=== PATIENT | male | born 1955 | race Caucasian/White ===

== ENCOUNTER 2021-02-14 06:59 | Outpatient (REF) | payer OTHER, SELFPAY ==
[2021-02-14 07:39] LABS: MANUAL DIFF FLAG NO
[2021-02-14 07:48] LABS: Basophils Absolute Auto 0.1 X10*3/uL (0.0-0.2); Eosinophils Absolute Auto 0.2 X10*3/uL (0.0-0.4); Eosinophils Percent Auto 2.3 % (0-4); Hematocrit 43.8 % (42-52); Hemoglobin 14.3 g/dl (14.0-18.0); Imm Gran Abs Auto 0.03 X10*3/uL (0.00-0.03); Imm Gran Pct Auto 0.4 % (0.0-0.4); Lymphocytes Absolute Auto 2.1 X10*3/uL (1.2-4.9); Lymphocytes Percent Auto 24.8 % (20-40); Mean Corpuscular HGB Conc 32.6 g/dl (31.0-36.0); Mean Corpuscular Hemoglobin 30.6 pg (27.0-33.0); Mean Corpuscular Volume 93.8 fL (80-98); Mean Platelet Volume 11.7 fL (9.4-12.4); Monocytes Absolute Auto 0.7 X10*3/uL (0.1-1.2); Monocytes Percent Auto 8.3 % (2-11); Neutrophils Absolute Auto 5.3 X10*3/uL (2.0-8.3); Neutrophils Percent Auto 63.2 % (45-73); Platelet Count 212 X10*3/uL (160-400); Red Blood Count 4.67 X10*6/uL (4.60-5.80); Red Cell Distribution Width 13.7 % (11.0-16.0); White Blood Count 8.3 X10*3/uL (4.8-10.8)
[2021-02-14 08:14] LABS: Alanine Aminotransferase 20 U/L (0-40); Albumin Level 4.4 g/dL (3.5-5.0); Alkaline Phosphatase 38 U/L (39-117); Anion Gap 11 (12-20); Aspartate Amino Transferase 16 U/L (5-37); Bilirubin Total 0.4 mg/dL (0.0-1.0); Blood Urea Nitrogen 15 mg/dL (9-16); Calcium 9.7 mg/dL (8.4-10.2); Carbon Dioxide 29 mmol/L (22-29); Chloride 103 mmol/L (96-108); Cholesterol 153 mg/dL; Estimated Glomerular Filt Rate > 60; Glucose Random 106 mg/dL (60-115); HDL Cholesterol 53 mg/dL; LDL Cholesterol Calculated 90 mg/dl; Potassium 4.8 mmol/L (3.3-5.1); Sodium 138 mmol/L (135-145); Total Protein 7.1 g/dL (6.5-8.0); Triglycerides 53 mg/dL
[2021-02-14 08:36] LABS: Prostate Specific Antigen 0.37 ng/mL (<0.05-4.0)
== END 2021-02-14 07:00 | disposition home or self-care (01) ==
LOC: HO.LAB 06:59
PROVIDERS: PCP Internal Medicine; Visit Provider Internal Medicine
DX: Z12.5 Encounter for screening for malignant neoplasm of prostate (principal); E78.00 Pure hypercholesterolemia, unspecified; Z87.19 Personal history of other diseases of the digestive system
CPT/HCPCS: 36415; 80053; 80061; 84153; 85025

== ENCOUNTER 2023-05-17 08:44 | Outpatient (AMB) | payer MEDICARE, SELFPAY ==
[2023-05-17 09:12] VITALS: BP 128/72; PULSE 76; TEMP 36.6; O2SAT 99
--- NOTE | 2023-05-17 09:12 | MHC.OFFWIV ---
Intake Vital Signs 05/17/23 09:12 Weight 165 lb BP 128/72 Blood Pressure Location Lt brachial Position Sitting Pulse 76 Pulse Source Pulse Oximeter Temp 97.8 F Temp Source Oral Pulse Oximetry (%) 99 Oxygen Delivery Method Room Air Intake Visit Reasons: EP, Right side of back pain Intake Note: pt is here for c/o dizziness/room spinning while doing yard work, also right side back pain for a few months Patient Tobacco Use Status: Never used Tobacco Allergies codeine [CODEINE] Allergy (Intermediate, Verified 05/17/23 09:14) RASH Do you need a note to return to daycare/school/sports/work: No HPI EP, Right side of back pain HPI Details Patient presents with to primary complaints today. He reports intermittent left-sided back pain, which mostly occurs when he has been holding his urine for a long time. He denies any burning with urination. He denies any urgency or frequency with urination. He denies any fever or chills. He reports this pain is a tightness/sharp spasm. He also reports a couple episodes of vertigo over the last couple months, the last of which was last Tuesday. This occurred after he was bending down doing some work in his garden. He stood up quickly, and yet has sensation of vertigo and dizziness until he was able to lie down in his home. He denies any chest pain, shortness of breath, palpitations. He reports he is otherwise very healthy. He was not able to get in with his PCP. He reports the last time he had symptoms like this, he had COVID, and he would like to have a test done if possible. [facility] Social History Patient Tobacco Use Status: Never used Tobacco Review of Systems Const All systems reviewed & are unremarkable except as noted in HPI and below Physical Exam Vital Signs: Last Vital Signs Temp 97.8 F 05/17/23 09:12 Pulse 76 05/17/23 09:12 BP 128/72 05/17/23 09:12 Pulse Ox 99 05/17/23 09:12 Oxygen Delivery Method Room Air 05/17/23 09:12 Const General: cooperative, healthy appearing, comfortable and no acute distress Nutritional Appearance: average body habitus HEENT Head: Yes normal to inspection Neck Neck: Yes no lymphadenopathy Resp Effort & Inspection: normal respiratory effort and able to speak in complete sentences Auscultation: clear to auscultation bilaterally Cardio Jugular venous distension: no JVD Palpation: normal PMI Rate: regular rate Rhythm: regular rhythm General: Yes no CVA tenderness Back/Spine/Pelvis Back: no CVA tenderness Skin General skin exam: no rashes or lesions noted Neuro General: tone normal and no focal motor deficits Extrem General: Yes capillary refill normal and Yes no clubbing, cyanosis or edema Psych Appearance: grossly normal Mental Status: mental status grossly normal Speech and movement: Normal speech and movement present Results AMB Urinalysis, Automated UA Leukoctes 0 Snehal/uL Last Edit by Rodrick Delong CMA on 05/17/23 09:25 UA Nitrite Negative Last Edit by Rodrick Delong CMA on 05/17/23 09:25 UA Urobilinogen 0.2 mg/dL Last Edit by Rodrick Delong CMA on 05/17/23 09:25 UA Protein 0 mg/dL Last Edit by Rodrick Delong CMA on 05/17/23 09:25 UA pH 6.0 Last Edit by Rodrick Delong CMA on 05/17/23 09:25 UA Blood 0 Bruce/uL Last Edit by Rodrick Delong CMA on 05/17/23 09:25 UA Specific Laurel 1.020 Last Edit by Rodrick Delong CMA on 05/17/23 09:25 UA Ketone Negative Last Edit by Rodrick Delong CMA on 05/17/23 09:25 UA Bilirubin 0 mg/dL Last Edit by Rodrick Delong CMA on 05/17/23 09:25 UA Glucose 0 mg/dL Last Edit by Rodrick Delong CMA on 05/17/23 09:25 Results Reviewed Results Reviewed: Laboratory Last Values Urine pH (Auto) 6.0 05/17/23 09:24 Specific Laurel (Auto) 1.020 05/17/23 09:24 Urine Protein (Auto) 0 mg/dL 05/17/23 09:24 Glucose (UA)(Auto) 0 mg/dL 05/17/23 09:24 Urine Ketones (Auto) Negative 05/17/23 09:24 Urine Blood (Auto) 0 Bruce/uL 05/17/23 09:24 Urine Nitrite (Auto) Negative 05/17/23 09:24 Urine Bilirubin (Auto) 0 mg/dL 05/17/23 09:24 Urine Urobilinogen (Auto) 0.2 mg/dL 05/17/23 09:24 Leukocyte Esterase (Auto) 0 Snehal/uL 05/17/23 09:24 Assessment & Plan Assessment & Plan (1) Dizziness: Code(s): R42 - Dizziness and giddiness Plan: Patient has not been able to get and with his PCP Dr. Cole. He has been having episodes of dizziness, particularly with position changes. I encouraged him to increase hydration, and to change positions slowly, particularly when bending over. I am going to order some labs today, CBC, BMP and will notify him of results once these are available. I encouraged him to call PCP office to make follow-up appt. If these episodes started occurring more frequently, he should go to the ED for evaluation. (2) Right-sided back pain: Code(s): M54.9 - Dorsalgia, unspecified Qualifiers: Back pain location: thoracic back pain Chronicity: unspecified Qualified Code(s): M54.6 - Pain in thoracic spine Plan: Patient has some spasm-like right mid back pain intermittently after holding urine for a long time. No urinary symptoms. Urine dip in the office was normal. Will check kidney function with labs. If he develops any urinary symptoms, he should follow-up with PCP or return to the clinic for further evaluation. Orders: Orders Basic Metabolic Panel Today R42 - Dizziness and giddiness RADHA Salazar Complete Blood Count Auto Diff Today R42 - Dizziness and giddiness RADHA Salazar BinaxNOW Covid-19 Ag Today R42 - Dizziness and giddiness RADHA Salazar AMB Urinalysis Automated Today Z13.9 - Encounter for screening, unspecified ANGEL Best Coding Level of Care Code Est Pt Level 3 (58787) Diagnoses Dizziness R42 Right-sided back pain M54.6 Back pain location: thoracic back pain Chronicity: unspecified
== END 2023-05-17 10:22 | disposition home or self-care (01) ==
PROVIDERS: PCP Internal Medicine; Visit Provider Nurse Practitioner Family
DX: R42 Dizziness and giddiness (principal); M54.6 Pain in thoracic spine
CPT/HCPCS: 81003; 99213

== ENCOUNTER 2023-05-17 10:10 | Outpatient (REF) | payer MEDICARE, SELFPAY ==
[2023-05-17 10:37] LABS: Binax Now Covid-19 Ag Negative (Negative); Binax Performed by: HO.BONILM
[2023-05-17 10:38] LABS: Binax Internal Control QC Valid
[2023-05-17 13:48] LABS: MANUAL DIFF FLAG NO
[2023-05-17 13:53] LABS: Basophils Absolute Auto 0.1 X10*3/uL (0.0-0.2); Basophils Percent Auto 0.8 % (0-2); Eosinophils Absolute Auto 0.1 X10*3/uL (0.0-0.4); Eosinophils Percent Auto 0.6 % (0-4); Hematocrit 46.9 % (42.0-52.0); Hemoglobin 15.6 g/dl (14.0-18.0); Imm Gran Abs Auto 0.04 X10*3/uL (0.00-0.03); Imm Gran Pct Auto 0.4 % (0.0-0.4); Lymphocytes Absolute Auto 1.9 X10*3/uL (1.2-4.9); Lymphocytes Percent Auto 18.6 % (20-40); Mean Corpuscular HGB Conc 33.3 g/dl (31.0-36.0); Mean Corpuscular Hemoglobin 30.6 pg (27.0-33.0); Mean Platelet Volume 11.2 fL (9.4-12.4); Monocytes Absolute Auto 0.8 X10*3/uL (0.1-1.2); Monocytes Percent Auto 8.1 % (2-11); Neutrophils Absolute Auto 7.2 x10*3/uL (2.0-8.3); Neutrophils Percent Auto 71.5 % (45-73); Platelet Count 286 X10*3/uL (160-400); Red Cell Distribution Width 13.6 % (11.0-16.0); White Blood Count 10.1 X10*3/uL (4.8-10.8)
[2023-05-17 14:04] LABS: Anion Gap 12 (12-20); Blood Urea Nitrogen 15 mg/dL (9-16); Calcium 10.1 mg/dL (8.4-10.2); Carbon Dioxide 28 mmol/L (22-29); Chloride 104 mmol/L (96-108); Estimated Glomerular Filt Rate > 60; Glucose Random 89 mg/dL (60-115); Potassium 4.5 mmol/L (3.3-5.1); Sodium 139 mmol/L (135-145)
== END 2023-05-17 10:11 | disposition home or self-care (01) ==
LOC: HO.HMGCLDS 10:10
PROVIDERS: PCP Internal Medicine; Visit Provider Nurse Practitioner Family
DX: R42 Dizziness and giddiness (principal); Z20.822 Contact with and (suspected) exposure to COVID-19
CPT/HCPCS: 80048; 85025; 87811; C9803

== ENCOUNTER 2023-06-17 08:03 | Outpatient (AMB) | payer MEDICARE, SELFPAY ==
--- NOTE | 2023-06-17 08:10 | AM.OFFWIN_ITS ---
Intake Vital Signs 06/17/23 08:12 Height 5 ft 9 in Weight 168 lb BMI 24.8 BP 142/82 H Blood Pressure Location Lt brachial Position Sitting Pulse 82 Pulse Source Pulse Oximeter Temp 97.9 F Temp Source Temporal Artery Scan Pulse Oximetry (%) 98 Intake Visit Reasons: EP WC LT knee Injury Intake Note: pt is here for WC left knee injury Patient Tobacco Use Status: Never used Tobacco Allergies codeine [CODEINE] Allergy (Intermediate, Verified 05/17/23 09:14) RASH Do you need a note to return to daycare/school/sports/work: Yes HPI HPI Comments History of Present Illness Details This is a 67-year-old male with no stated past medical history presenting for evaluation of a left knee injury that occurred at work on June 15, 2023. 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 The patient was standing while holding an industrial size rule of plastics shrink wrap on his right shoulder when he twisted his left knee. Patient states he has had pain in his left medial knee since that time. Patient has been taking 400 mg of ibuprofen 3 times daily however this has caused him abdominal pain, which has occurred before with ibuprofen. Patient reported the incident to his hospice clinical supervisor however has not yet submitted a workman's compensation claim. Patient states he is able to ambulate independently with discomfort. [facility] Social History Patient Tobacco Use Status: Never used Tobacco Review of Systems Const All systems reviewed & are unremarkable except as noted in HPI and below Musc Denies back pain, Denies myalgias, Reports joint swelling (left knee), Reports limited range of motion (Left knee), Denies muscle weakness, Reports stiffness (left knee) and Denies tingling Skin/Breast Reports system reviewed and no additional complaints, except as documented Neuro Denies tingling Physical Exam Vital Signs: Last Vital Signs Temp 97.9 F 06/17/23 08:12 Pulse 82 06/17/23 08:12 BP 142/82 H 06/17/23 08:12 Pulse Ox 98 06/17/23 08:12 BMI result Body Mass Index 24.8 Const General: cooperative, healthy appearing and no acute distress Nutritional Appearance: average body habitus Orientation/consciousness: patient oriented x3 Limitations: no limitations Neuro General: patient oriented x3 Extrem General: Yes normal to inspection, Yes no calf tenderness (left) and No normal gait (favoring left lower extremity) Left lower extremity: full ROM (left knee) and knee (left knee with tenderness medially,no joint laxity,no patella edema/warmth) Details: no swelling, no deformity and no unusual warmth; no edema Psych Appearance: grossly normal Affect: normal affect Attitude: cooperative Thought process: Normal thought process present Thought content: Normal thought content present Insight: Good insight present (Psych) Judgement: Good judgement present (Psych) Assessment & Plan Assessment & Plan (1) Strain of left knee: Code(s): S86.912A - Strain of unspecified muscle(s) and tendon(s) at lower leg level, left leg, initial encounter Plan: Patient seen and evaluated. Patient will be discharged home with a short course of prednisone 40 mg for his discomfort to avoid additional NSAID administ ration. Patient is encouraged to speak with his hospice clinical supervisor and open a formal workman's compensation claim as he will benefit from a physical therapy evaluation. No splinting or compression is provided Or warranted today in the office. Medications: New prednisone 40 mg (2 x 20 mg) PO DAILY 10 tabs 0RF Coding Level of Care Code New Pt Level 3 (72505) Diagnoses Strain of left knee S86.912A Time Spent (min) 20
[2023-06-17 08:12] VITALS: BP 142/82; PULSE 82; TEMP 36.6; O2SAT 98; BMI 24.8
== END 2023-06-17 09:25 | disposition home or self-care (01) ==
PROVIDERS: PCP Internal Medicine; Visit Provider Physician Assistant
DX: S86.912A Strain of unspecified muscle(s) and tendon(s) at lower leg level, left leg, initial encounter (principal)
CPT/HCPCS: 99203

== ENCOUNTER 2024-05-26 07:00 | Outpatient (REF) | payer MEDICARE, SELFPAY ==
[2024-05-26 07:32] LABS: MANUAL DIFF FLAG NO
[2024-05-26 08:23] LABS: Basophils Absolute Auto 0.1 X10*3/uL (0.0-0.2); Basophils Percent Auto 0.8 % (0-2); Eosinophils Absolute Auto 0.2 X10*3/uL (0.0-0.4); Hematocrit 43.8 % (42.0-52.0); Hemoglobin 14.6 g/dl (14.0-18.0); Imm Gran Abs Auto 0.03 X10*3/uL (0.00-0.03); Imm Gran Pct Auto 0.3 % (0.0-0.4); Lymphocytes Absolute Auto 1.7 X10*3/uL (1.2-4.9); Lymphocytes Percent Auto 19.5 % (20-40); Mean Corpuscular HGB Conc 33.3 g/dl (31.0-36.0); Mean Corpuscular Hemoglobin 30.7 pg (27.0-33.0); Mean Corpuscular Volume 92.2 fL (80.0-98.0); Mean Platelet Volume 11.2 fL (9.4-12.4); Monocytes Absolute Auto 0.7 X10*3/uL (0.1-1.2); Monocytes Percent Auto 7.8 % (2-11); Neutrophils Absolute Auto 6.2 x10*3/uL (2.0-8.3); Neutrophils Percent Auto 69.6 % (45-73); Platelet Count 234 X10*3/uL (160-400); Red Blood Count 4.75 X10*6/uL (4.60-5.80); White Blood Count 8.9 X10*3/uL (4.8-10.8)
[2024-05-26 08:56] LABS: Alanine Aminotransferase 17 U/L (0-40); Albumin Level 4.3 g/dL (3.5-5.0); Alkaline Phosphatase 38 U/L (39-117); Anion Gap 12 (12-20); Aspartate Amino Transferase 14 U/L (5-37); Bilirubin Total 0.7 mg/dL (0.0-1.0); Blood Urea Nitrogen 15 mg/dL (9-16); Carbon Dioxide 29 mmol/L (22-29); Chloride 104 mmol/L (96-108); Cholesterol 270 mg/dL (<200); Estimated Glomerular Filt Rate > 60; Glucose Random 97 mg/dL (60-115); HDL Cholesterol 59 mg/dL (>40); LDL Cholesterol Calculated 198 mg/dL (<100); Potassium 5.1 mmol/L (3.3-5.1); Sodium 140 mmol/L (135-145); Total Protein 7.1 g/dL (6.5-8.0); Triglycerides 69 mg/dL (<150)
[2024-05-26 09:12] LABS: TSH reflex Free T4 1.16 uIU/mL (0.32-4.0)
[2024-05-30 13:18] LABS: HCV Log PCR <1.18 NOT DETECTED Log IU/mL (NOT DETECTED); HepC Viral Load <15 NOT DETECTED IU/mL (NOT DETECTED)
== END 2024-05-26 07:01 | disposition home or self-care (01) ==
LOC: HO.LAB 07:00
PROVIDERS: PCP Internal Medicine; Visit Provider Internal Medicine
DX: E78.00 Pure hypercholesterolemia, unspecified (principal)
CPT/HCPCS: 36415; 80053; 80061; 84443; 85025; 87522

== ENCOUNTER 2024-06-14 08:37 | Outpatient (REF) | payer MEDICARE, SELFPAY ==
--- NOTE | ~2024-06-14 | US_ITS ---
EXAMINATION: US ABDOMEN COMPLETE CLINICAL INFORMATION: Transaminitis. COMPARISON: None available. TECHNIQUE: Real-time imaging of the abdominal viscera. FINDINGS: PANCREAS: Normal. ABDOMINAL AORTA: The proximal, mid, and distal segments are normal in caliber. INFERIOR VENA CAVA: Visualized portions are normal. LIVER: The liver is normal in size. The liver contour is normal. Parenchymal echogenicity is normal. No focal hepatic lesion. There is no intrahepatic biliary duct dilatation seen. GALLBLADDER: The gallbladder is physiologically distended without evidence of stones, sludge, polyps, wall thickening or pericholecystic fluid. There is an echogenic area in the wall of the gallbladder posteriorly measuring 3 x 2 x 2 mm which either represents a nonmobile stone versus a calcified polyp versus an area of mural calcification. COMMON BILE DUCT: Normal in caliber measuring 0.6 cm in diameter. RIGHT KIDNEY: Multiple echogenic foci seen the largest measuring 3 mm in the mid kidney consistent with nonobstructing calculi. No hydronephrosis. The kidney measures 11.6 cm in maximum dimension. Multiple benign Bosniak class I renal cysts are noted, the largest in the upper pole measuring 1.6 cm, which require no additional imaging or follow-up. No solid renal masses are seen. LEFT KIDNEY: Multiple echogenic foci seen consistent with nonobstructing calculi the largest in the upper pole measuring 4 mm. No hydronephrosis. The kidney measures 11.0 cm in maximum dimension. Multiple benign Bosniak class I renal cysts are noted, the largest in the upper pole measuring 4.7 cm, which require no additional imaging or followup. No solid renal masses are seen. SPLEEN: Normal. The spleen measures 9.5 cm in maximum dimension. FREE FLUID: None. US/US abdomen complete IMPRESSION: 1. Bilateral nonobstructing renal calculi. 2. A 3 mm echogenic area in the wall of the gallbladder which either represents a nonmobile stone versus a calcified polyp versus an area of mural calcification. 3. Bilateral benign Bosniak class I renal cysts need no additional imaging or followup. Electronically signed by: Jose Tesfaye MD 08/02/2024 01:11 PM [facility] [place]
[2024-06-14 10:51] LABS: Prostate Specific Antigen 0.49 ng/mL (<0.05-4.0)
== END 2024-06-14 08:38 | disposition home or self-care (01) ==
LOC: HO.HMGCX 08:37
PROVIDERS: PCP Internal Medicine; Visit Provider Internal Medicine
DX: R74.01 Elevation of levels of liver transaminase levels (principal); R35.1 Nocturia; Z12.5 Encounter for screening for malignant neoplasm of prostate
CPT/HCPCS: 36415; 76700; 84153

== ENCOUNTER 2024-12-10 10:24 | Day surgery (SDC) | payer MEDICARE, SELFPAY ==
[2024-12-06 16:22] VITALS: BMI 23.3
--- NOTE | 2024-12-07 10:58 | HO.ANESPROP2 ---
Documented by User: Rose Mary Magallon NP 12/07/24 10:58 HPI - Anesthesia Eval Consult details Narrative: 69yo M for Colonoscopy [facility] Active Problems Active Problems: All Active Problems Strain of left knee (Acute) Past Medical History Medical History (Updated 12/10/24 @ 11:06 by Liz Boone RN) Trigger finger of right hand Surgical History Surgical History (Updated 12/10/24 @ 11:06 by Liz Boone RN) S/P trigger finger release Hx of left inguinal hernia repair (~2005) Hx of umbilical hernia repair (~2005) Hx of colonoscopy Social History Social History Patient Tobacco Use Status: Never used Tobacco Use of substances other than those prescribed or required for medical reasons: Yes Substance Use Frequency: Occasionally Have you been hit, kicked, punched, or otherwise hurt by someone within the past year? If so, by whom?: No Are you DNR?: No Advance Directives: No Advance Directives Information Provided: Yes Recently lost weight without trying: No Nutrition Risks: No Nutritional Risk Poor oral hygiene: No Meds Allergies Allergy/AdvReac Type Severity Reaction Status Date / Time codeine [CODEINE] Allergy Intermediate RASH Verified 12/10/24 11:06 Home Medications ?Medication ?Instructions ?Recorded ?Confirmed ?Last Taken ?Type Fish Oil 1,000 mcg PO DAILY 12/06/24 12/10/24 Unknown History ibuprofen 600 mg PO Q6-8H PRN Pain (Scale 12/06/24 12/10/24 Unknown History Score 7-10) multivitamin 1 tab PO DAILY 12/06/24 12/10/24 Unknown History Exam Height,Weight and Vital Signs: Height 5 ft 9 in Weight 71.668 kg Assessment and Plan Assessment Anesthesia Assessment: Chart Reviewed Documented by User: Con Pratt MD 12/10/24 12:25 PMFSH Past Medical History Medical History (Updated 12/10/24 @ 11:06 by Liz Boone RN) Trigger finger of right hand Family History Family history of problems with anesthesia: No Surgical History Surgical History (Updated 12/10/24 @ 11:06 by Liz Boone RN) S/P trigger finger release Hx of left inguinal hernia repair (~2005) Hx of umbilical hernia repair (~2005) Hx of colonoscopy History of Problems with Anesthesia: No Social History Social History Patient Tobacco Use Status: Never used Tobacco Use of substances other than those prescribed or required for medical reasons: Yes Substance Use Frequency: Occasionally Have you been hit, kicked, punched, or otherwise hurt by someone within the past year? If so, by whom?: No Are you DNR?: No Advance Directives: No Advance Directives Information Provided: Yes Recently lost weight without trying: No Nutrition Risks: No Nutritional Risk Poor oral hygiene: No Meds Allergies Allergy/AdvReac Type Severity Reaction Status Date / Time codeine [CODEINE] Allergy Intermediate RASH Verified 12/10/24 11:06 Home Medications ?Medication ?Instructions ?Recorded ?Confirmed ?Last Taken ?Type Fish Oil 1,000 mcg PO DAILY 12/06/24 12/10/24 Unknown History ibuprofen 600 mg PO Q6-8H PRN Pain (Scale 12/06/24 12/10/24 Unknown History Score 7-10) multivitamin 1 tab PO DAILY 12/06/24 12/10/24 Unknown History Exam Airway Mallampati Class: II TM Dist: >3cm Neck ROM: Full Assessment and Plan Assessment Anesthesia Assessment: Anesthesia Plan Discussed Final Anesthetic Review Family History of Problems with Anesthesia: No History of Problems with Anesthesia: No NPO: Yes ASA Class: I Final Preanesthetic Review: No Changes in Pt Med Stat, Meds/Allgs Chart Reviewed, Consent Obtained/Reviewed and Anes Risks/Benef Reviewed Patient Risk: Intermediate Procedure Risk: Low Anesthetic Plan Anesthetic Plan: TIVA Disposition: Standard PACU
[2024-12-10 11:02] VITALS: BP 138/103; PULSE 92; RESP 16; TEMP 37.1; O2SAT 99; BMI 22.6
[2024-12-10] MEDS: Lactated Ringers 1,000 ML 100 ML IVCONT (11:20)
[2024-12-10 13:14] VITALS: BP 112/79; PULSE 65; RESP 15; TEMP 36.3; O2SAT 96
--- NOTE | 2024-12-10 13:14 | P.BOP_ITS ---
Brief Operative Note Date of Service: 12/10/24 Pre-op diagnosis: Screening Post-op diagnosis: other (Diverticulosis) Procedure: Colonoscopy to the cecum and TI Surgeon: Evelio Johnson MD Anesthesia: MAC Was an Fitness Leader used for this Procedure?: No Estimated blood loss (mL): 0 Pathology: none sent Condition: stable Disposition: PACU
[2024-12-10 13:27] VITALS: BP 123/87; PULSE 76; RESP 16; O2SAT 96
[2024-12-10 13:35] VITALS: BP 124/82; PULSE 74; RESP 16; TEMP 36.3; O2SAT 96
--- NOTE | 2024-12-10 14:37 | OP_ITS ---
DATE OF SERVICE: 12/10/2024 SURGEON: Evelio Johnson MD INDICATIONS: The patient presents for evaluation of personal history of tubular adenoma of the colon, family history of colon cancer, and need for colorectal cancer screening. Full consent has been obtained from him for this, including risks of bleeding and perforation. PREOPERATIVE DIAGNOSIS: POSTOPERATIVE DIAGNOSIS: PROCEDURE PERFORMED: Colonoscopy to cecum and terminal ileum. ESTIMATED BLOOD LOSS: COMPLICATIONS: ANESTHESIA: Medication used, monitored anesthesia care. ASSISTANTS: SPECIMENS: PREOPERATIVE DIAGNOSES: Colorectal cancer screening, personal history of tubular adenoma of the colon, family history of colon cancer. POSTOPERATIVE DIAGNOSES: Colorectal cancer screening, personal history of tubular adenoma of the colon, family history of colon cancer, diverticulosis, and internal hemorrhoids. DESCRIPTION OF PROCEDURE: The patient was placed in the left lateral decubitus position. The digital rectal exam revealed no abnormalities. The Olympus video pediatric colonoscope was entered into the rectum and advanced easily to the cecum. Once in the cecum, I did identify normal-appearing cecal pouch with appendiceal orifice and a normal-appearing ileocecal valve. The terminal ileum was cannulated and appeared normal. The scope was withdrawn back in the colon. The entire cecum and ileocecal valve appeared normal. The scope was slowly withdrawn assessing all mucosal surfaces carefully. Preparation throughout the colon was very good but did require some irrigation and suctioning. I did not visualize any sign of polyps, colitis, nor angiodysplasia. There was a mild to moderate amount of sigmoid diverticulosis. In the rectum, scope was retroflexed visualizing internal hemorrhoids, but no other pathology. The rectal mucosa appeared normal. The scope was straightened and withdrawn from the patient. He tolerated the procedure well and was returned to the recovery area in stable condition. IMPRESSION: 1. Diverticulosis. 2. Internal hemorrhoids. PLAN: Given his previous history and family history, I would recommend a followup coloscopy in 5 years for further screening. He will otherwise see me on a p.r.n. basis. Evelio Johnson MD RMMartínez/GET / [id number]
== END 2024-12-10 14:04 | disposition home or self-care (01) ==
PROVIDERS: PCP Internal Medicine; Visit Provider Internal Medicine
PROC: 0DJD8ZZ Inspection of Lower Intestinal Tract, Via Natural or Artificial Opening Endoscopic (ICD-10-PCS; CPT 45378; principal; 2024-12-10 12:50)
DX: Z12.11 Encounter for screening for malignant neoplasm of colon (principal); Z86.0101 Personal history of adenomatous and serrated colon polyps; Z80.0 Family history of malignant neoplasm of digestive organs; K57.30 Diverticulosis of large intestine without perforation or abscess without bleeding; K64.8 Other hemorrhoids; Z79.1 Long term (current) use of non-steroidal anti-inflammatories (NSAID); Z92.29 Personal history of other drug therapy; Z88.5 Allergy status to narcotic agent; Z98.890 Other specified postprocedural states
CPT/HCPCS: G0105; J2003; J2704